=== PATIENT | female | born 1980 | race Two or more races ===

== ENCOUNTER 2018-12-28 20:14 | Emergency (ER) | payer BC ==
[~2018-12-28] VITALS: Ht 167.6 cm; Wt 77.0 kg
[2018-12-28 20:33] VITALS: BP 154/87
[2018-12-28] MEDS ORDERED: IBUPROFEN 600MG TABLET PO ONE (21:30)
== END 2018-12-28 23:12 | disposition home or self-care (01) ==
LOC: ER 20:14
DX: S16.1XXA Strain of muscle, fascia and tendon at neck level, initial encounter (principal); I10 Essential (primary) hypertension; Z88.2 Allergy status to sulfonamides; V89.2XXA Person injured in unspecified motor-vehicle accident, traffic, initial encounter; Y93.89 Activity, other specified; Y92.89 Other specified places as the place of occurrence of the external cause; Y99.8 Other external cause status
CPT/HCPCS: 71045; 99283